=== PATIENT | female | born 1935 | race Caucasian/White ===

== ENCOUNTER 2023-08-05 12:08 | Inpatient (IN) | payer MEDICARE, OTHER ==
[~2023-08-05] VITALS: Ht 167.6 cm; Wt 67.9 kg
[2023-08-05] MEDS ORDERED: SODIUM CHLORIDE 0.9% 1,000 ML IV ONE (13:30)
[2023-08-05 13:31] VITALS: PULSE 72; RESP 16; O2SAT 96
[2023-08-05 13:35] LABS: Urine WBC None Seen /hpf (0 - 5)
[2023-08-05] MEDS ORDERED: NITROGLYCERIN 0.4 MG SL TAB SL PRN (14:00)
[2023-08-05] MEDS ORDERED: MORPHINE SULFATE INJ 2 MG/ml SYRG IV PRN (14:00)
[2023-08-05] MEDS ORDERED: D5W/SOD CHL 0.45% 1,000 ML IV ONE (14:00)
[2023-08-05 14:06] LABS: Basophils # (auto) 0.1 10 ^3/uL (0-0.2); Eosinophils # (auto) 0.1 10 ^3/uL (0-0.8); Eosinophils % (auto) 1.9 % (0.0-7.0); Hematocrit 38.3 % (36.0-46.0); Hemoglobin 12.7 g/dL (12.2-16.2); Lymphocytes # (auto) 1.6 10 ^3/uL (0.4-5.4); Lymphocytes % (auto) 30.9 % (10.0-50.0); Mean Corpuscular Hemoglobin 32.2 pg (28.0-32.0); Mean Corpuscular Hgb Conc. 33.2 g/dL (32.0-36.0); Monocytes # (auto) 0.5 10 ^3/uL (0-1.3); Monocytes % (auto) 9.8 % (0.0-12.0); Neutrophils % (auto) 56.4 % (37.0-80.0); Nucleated Red Blood Cells % 0.1 %; Red Blood Cells 3.95 10^6/uL (4.0-5.20); White Blood Cell 5.2 10^3/uL (4.4-10.8)
[2023-08-05 14:20] LABS: Urine Bacteria NONE SEEN /hpf (None Seen); Urine Blood TRACE /uL (Negative); Urine Clarity Clear (Clear); Urine Color Colorless (Yellow); Urine Protein, UAD Negative (Negative); Urine Specific Gravity 1.006 (1.001-1.035); Urine Urobilinogen Normal (Negative)
[2023-08-05 14:26] LABS: Alanine Aminotransferase 15 U/L (7-40); Albumin 4.4 g/dL (3.2-4.8); Alkaline Phosphatase 92 U/L (46-116); Anion Gap 7 (5-15); Aspartate Aminotransferase 21 U/L (13-40); BUN/Creatinine Ratio 19.2 (10.0-20.0); Bilirubin, Total 0.6 mg/dL (0.2-1.0); Blood Urea Nitrogen 19 mg/dL (9-23); Calcium 9.7 mg/dL (8.5-10.1); Carbon Dioxide 31 mmol/L (20-30); Chloride 102 mmol/L (98-107); Glucose 85 mg/dL (74-106); Potassium 3.8 mmol/L (3.5-5.1); Sodium 140 mmol/L (136-145); Total Protein 6.7 g/dL (5.7-8.2)
[2023-08-05] MEDS ORDERED: PANTOPRAZOLE 40 MG/10 ML VIAL INJ IV ONE (18:00)
[2023-08-05] MEDS: hydrALAZINE HCL 20 MG/ML VL IV PRN (20:43)
[2023-08-05 21:32] VITALS: PULSE 83; RESP 20; O2SAT 93
[2023-08-05] MEDS: NIFEdipine ER 30 MG TAB PO SCH (22:34)
[2023-08-05 23:31] VITALS: PULSE 105; RESP 20; O2SAT 98
[2023-08-06] MEDS: ACETAMINOPHEN 325 MG TAB PO PRN ×2 (03:54→04:01)
[2023-08-06] MEDS: hydrALAZINE HCL 20 MG/ML VL IV PRN (05:05)
[2023-08-06 08:00] VITALS: PULSE 101; PULSE 95; RESP 20; O2SAT 97
[2023-08-06 09:00] VITALS: BP 136/78; PULSE 107; RESP 17; TEMP 98.7; O2SAT 94
[2023-08-06] MEDS ORDERED: cefTRIAXone 1GM/50ML D5W 50 ML IV SCH (09:00)
[2023-08-06] MEDS: NIFEdipine ER 30 MG TAB PO SCH ×2 (09:34→21:56)
[2023-08-06] MEDS: LOSARTAN POTASSIUM 25 MG TAB PO SCH (09:35)
[2023-08-06] MEDS ORDERED: KETOROLAC TROMETH 30 MG/ML 1ML VIAL IV ONE (12:00)
[2023-08-06] MEDS ORDERED: LOSA25TA15 PO (13:17)
[2023-08-06] MEDS ORDERED: DIVA250T2 PO ×2 (13:17→13:19)
[2023-08-06] MEDS ORDERED: RIVA1CAP3 PO (13:17)
[2023-08-06] MEDS ORDERED: MEMA28CA15 PO (13:21)
[2023-08-06] MEDS ORDERED: FURO20TA3 PO (13:21)
[2023-08-06] MEDS ORDERED: DONE1TAB88 PO (13:21)
[2023-08-06] MEDS ORDERED: VANCOMYCIN HCL 250 MG CAP PO ONE (15:15)
[2023-08-06] MEDS: FLORASTOR (S. BOULARDII) 250 MG CAP PO SCH (17:07)
[2023-08-06 20:00] VITALS: BP 119/54; PULSE 92; PULSE 93; PULSE 95; RESP 18; RESP 20; TEMP 98.6; O2SAT 95; O2SAT 97
[2023-08-06] MEDS: DONEPEZIL HYDROCHLORIDE 5 MG TAB PO SCH (21:56)
[2023-08-06] MEDS: VANCOMYCIN HCL 250 MG CAP PO SCH (21:56)
[2023-08-07 04:30] VITALS: BP 134/59; PULSE 93; RESP 18; TEMP 99.6; O2SAT 92
[2023-08-07] MEDS: VANCOMYCIN HCL 250 MG CAP PO SCH ×4 (06:05→21:33)
[2023-08-07 06:11] LABS: Basophils # (auto) 0.1 10 ^3/uL (0-0.2); Basophils % (auto) 0.7 % (0.0-2.0); Eosinophils # (auto) 0.1 10 ^3/uL (0-0.8); Eosinophils % (auto) 1.5 % (0.0-7.0); Hematocrit 36.4 % (36.0-46.0); Hemoglobin 12.1 g/dL (12.2-16.2); Mean Corpuscular Hemoglobin 32.1 pg (28.0-32.0); Mean Corpuscular Hgb Conc. 33.3 g/dL (32.0-36.0); Mean Corpuscular Volume 96.6 fL (80.0-100.0); Monocytes # (auto) 0.8 10 ^3/uL (0-1.3); Monocytes % (auto) 10.4 % (0.0-12.0); Neutrophils # (auto) 4.6 10 ^3/uL (1.6-8.6); Neutrophils % (auto) 60.4 % (37.0-80.0); Nucleated Red Blood Cells % 0.1 %; Red Blood Cells 3.77 10^6/uL (4.0-5.20); Red Cell Distribution Width 14.3 % (11.8-14.3); White Blood Cell 7.6 10^3/uL (4.4-10.8)
[2023-08-07 06:26] LABS: Anion Gap 7 (5-15); Carbon Dioxide 28 mmol/L (20-30); Chloride 104 mmol/L (98-107); Potassium 3.6 mmol/L (3.5-5.1); Sodium 139 mmol/L (136-145)
[2023-08-07 06:32] LABS: Blood Urea Nitrogen 18 mg/dL (9-23); Glucose 85 mg/dL (74-106)
[2023-08-07 08:00] VITALS: PULSE 98; RESP 20; O2SAT 97
[2023-08-07 09:13] LABS: Free Thyroxine Index 2.4 (1.2-4.9); Thyroxine (T4) 7.9 ug/dL (4.5-12.0)
[2023-08-07] MEDS: FLORASTOR (S. BOULARDII) 250 MG CAP PO SCH (11:03)
[2023-08-07] MEDS: LOSARTAN POTASSIUM 25 MG TAB PO SCH (11:06)
[2023-08-07] MEDS: NIFEdipine ER 30 MG TAB PO SCH ×2 (11:07→21:41)
[2023-08-07 17:00] VITALS: BP 126/51; PULSE 86; RESP 18; TEMP 98.3; O2SAT 93
[2023-08-07 20:00] VITALS: PULSE 92
[2023-08-07] MEDS: DONEPEZIL HYDROCHLORIDE 5 MG TAB PO SCH (21:33)
[2023-08-07] MEDS: ACETAMINOPHEN 325 MG TAB PO PRN (21:33)
[2023-08-08] VITALS (7 sets, daily range): BP systolic 109–148; BP diastolic 38–61; PULSE 72–108; RESP 16–18; TEMP 97.7–98.6; O2SAT 95–96
[2023-08-08] MEDS: ACETAMINOPHEN 325 MG TAB PO PRN ×2 (04:01→16:22)
[2023-08-08] MEDS: VANCOMYCIN HCL 250 MG CAP PO SCH ×4 (06:28→21:33)
[2023-08-08] MEDS: LOSARTAN POTASSIUM 25 MG TAB PO SCH (09:44)
[2023-08-08] MEDS: FLORASTOR (S. BOULARDII) 250 MG CAP PO SCH (09:44)
[2023-08-08] MEDS: NIFEdipine ER 30 MG TAB PO SCH ×2 (09:45→21:34)
[2023-08-08] MEDS: HYDROcodone-ACET 5/325MG TAB PO PRN ×2 (11:01→21:33)
[2023-08-08] MEDS: DONEPEZIL HYDROCHLORIDE 5 MG TAB PO SCH (21:33)
[2023-08-09 04:30] VITALS: BP 147/57; PULSE 84; RESP 18; TEMP 98.4; O2SAT 95
[2023-08-09] MEDS: HYDROcodone-ACET 5/325MG TAB PO PRN ×2 (04:59→15:26)
[2023-08-09] MEDS: VANCOMYCIN HCL 250 MG CAP PO SCH ×2 (06:20→12:50)
[2023-08-09 08:00] VITALS: PULSE 90
[2023-08-09 09:00] VITALS: BP 142/58; PULSE 102; RESP 17; TEMP 98; O2SAT 96
[2023-08-09 09:21] VITALS: BP 147/57; PULSE 84; RESP 18; TEMP 98.4; O2SAT 95
[2023-08-09] MEDS: FLORASTOR (S. BOULARDII) 250 MG CAP PO SCH (09:33)
[2023-08-09] MEDS: NIFEdipine ER 30 MG TAB PO SCH (09:33)
[2023-08-09] MEDS: LOSARTAN POTASSIUM 25 MG TAB PO SCH (09:33)
[2023-08-09 12:52] VITALS: BP 142/58; TEMP 36.9
[2023-08-09 13:30] VITALS: BP 132/60; PULSE 75; RESP 16; TEMP 97.9; O2SAT 95
== END 2023-08-09 16:04 | DRG 554 ==
LOC: EDBD 12:08 → ER 12:08 → TELE 13:49 → TELE-WESTW 23:15
PROVIDERS: ADMIT Specialist; ATTEND Internal Medicine
DX: M17.11 Unilateral primary osteoarthritis, right knee (principal); A04.72 Enterocolitis due to Clostridium difficile, not specified as recurrent; R07.9 Chest pain, unspecified; E86.0 Dehydration; I10 Essential (primary) hypertension; F02.80 Dementia in other diseases classified elsewhere, unspecified severity, without behavioral disturbance, psychotic disturbance, mood disturbance, and anxiety; G30.9 Alzheimer's disease, unspecified; Z91.81 History of falling
CPT/HCPCS: 36415; 70450; 71045; 73560; 80048; 80053; 80164; 81001; 82140; 82306; 82607; 83605; 83735; 83880; 84443; 84484; 85025; 87040; 87086; 87493; 93005; 93306; 97110; 97116; 97163; 97530; C9113; G0378; J1885